=== PATIENT | female | born 1980 | race African-American/Black ===

== ENCOUNTER → 2022-03-24 11:00 | Outpatient (CLI) | payer BC, SELFPAY ==
--- NOTE | ~2022-03-24 | XR_ITS ---
XR chest 2V DATE: 03/24/2022 11:35 INDICATION: Preoperative chest TECHNIQUE: PA and lateral views COMPARISON: None FINDINGS: Normal heart size. No hilar or mediastinal enlargement. No pulmonary infiltrate or consolid ation, pleural effusion or pulmonary vascular congestion or pneumothorax. Minimal dextroscoliosis of the thoracic spine. IMPRESSION: No active cardiopulmonary disease Reviewed, dictated and finalized at location A.
== END ==
DX: J45.30 Mild persistent asthma, uncomplicated (principal); Z01.818 Encounter for other preprocedural examination
CPT/HCPCS: 71046